=== PATIENT | male | born 2000 | race Caucasian/White ===

== ENCOUNTER → 2023-05-11 | Outpatient (CLI) | payer OTHER, SELFPAY ==
--- NOTE | 2023-05-11 16:58 | CT_ITS ---
CT of the right wrist INDICATION: Posttraumatic pain TECHNIQUE: CT of the wrist was performed in the axial projection with and without contrast. Radiographic technique was optimized to limit patient radiation dose. DLP was 363.93 Additional 3-D volume rendered images were obtained at workstation. Findings: There is an acute hairline fracture through the proximal scaphoid and additional hairline fracture distally. . No other acute fractures are visualized and the joint spaces are maintained. MRI would be useful to exclude coexisting ligamentous or tendinous injuries if clinically warranted CT/Extremity Upper without Contra IMPRESSION: Acute hairline fractures of the proximal and distal scaphoid. Electronically Signed: Esa Demarco MD at 17:37 EDT ,
== END | disposition home or self-care (01) ==
LOC: CT 16:57
PROVIDERS: Referring Provider Student in an Organized Health Care Education/Training Program; Visit Provider Student in an Organized Health Care Education/Training Program
DX: S62.024A Nondisplaced fracture of middle third of navicular [scaphoid] bone of right wrist, initial encounter for closed fracture (principal); M25.531 Pain in right wrist; X58.XXXA Exposure to other specified factors, initial encounter
CPT/HCPCS: 73200